=== PATIENT | female | born 1995 | race Caucasian/White ===

== ENCOUNTER 2017-04-21 21:38 | Emergency (ER) | payer BC ==
[~2017-04-21] VITALS: Ht 175.3 cm; Wt 62.0 kg
[2017-04-21 21:52] VITALS: TEMP 37.1; Ht 175.3 cm; Wt 62.0 kg
[2017-04-21] MEDS ORDERED: IBUPROFEN 600 MG TAB PO STA (22:09)
[2017-04-21] MEDS ORDERED: BCPILLS PO (22:18)
--- NOTE | 2017-04-21 22:31 | DIAGNOSTIC IMAGING REPORT ---
L KNEE 3 VIEWS CLINICAL HISTORY: Left knee pain status post trauma COMPARISON: None. DISCUSSION: No fractures or dislocations are visualized. There is no radiographic evidence of a significant joint effusion. IMPRESSION: No fractures or dislocations identified. Electronically signed by: Carlito Buck M.D. 04/21/2017 10:30 PM Dictated Date/Time: 04/21/2017 10:30 PM
[2017-04-21 23:04] VITALS: BP 108/61; PULSE 98; O2SAT 99
--- NOTE | 2017-04-22 05:37 | EMERGENCY ROOM VISIT NOTE ---
ED Visit Note First contact with patient: 22:08 CHIEF COMPLAINT: knee pain HISTORY OF PRESENT ILLNESS: This 22-year-old patient presents to the emergency department with friends after sustaining an injury to the left knee when she twisted it landing after a jump during volleyball on someone's foot. The patient denies any other injuries besides their knee. The patient denies swelling or bruising. There is pain medial aspect. They rate the pain as throbbing and 4/10. The patient states they are barely able to walk on it. No numbness or tingling. No previous injuries to this knee. No ankle, foot or hip pain. REVIEW OF SYSTEMS: A 6 system review of systems was completed with positives and pertinent negatives listed in the HPI. ALLERGIES: None MEDICATIONS: control PMH: None SOCIAL HISTORY: No drug use PHYSICAL EXAM: Vital Signs: Reviewed Nurse's notes, vital signs stable. GENERAL : Pleasant female, no acute distress, but appears in pain, well-developed, well- nourished. MENTAL STATUS: Alert, oriented to person place and time, and cooperative. MUSCULOSKELETAL: The left knee is not swollen. There is no ecchymosis. There is no joint effusion present. The patient is tender medial collateral ligament. There is no joint line tenderness. The patella not subluxate. Range of motion is intact but painful. Strength of the quads and hamstrings is 5/5. Ethan's is negative. Bruce's and Anterior Drawer tests are negative. There is no laxity with varus and valgus stressing. The foot and toes are warm and well-perfused. Dorsalis pedis pulse 2+. Sensation to pain and light touch is intact. Capillary refill less than 2 seconds. EMERGENCY DEPARTMENT COURSE: I examined the patient. X-rays of the left knee were reviewed by myself and read by radiology and reveal no fracture. The patient was placed in a knee Tony wrap under my direction and the position was satisfactory. The patient was instructed on the use of crutches. Patient was advised if symptoms persist to follow-up orthopedics or here in the ER sooner for severe pain, numbness, tingling, worsening signs or symptoms or as needed. The patient was discharged home in good condition. DIAGNOSIS: Left knee sprain DISCHARGE INSTRUCTIONS: As below Current/Historical Medications Scheduled Control Pills ( Control Pills), 1 TAB PO DAILY Allergies Coded Allergies: No Known Allergies (Unverified , 04/21/17) Vital Signs Date Time Temp Pulse Resp B/P (MAP) Pulse Ox O2 Delivery O2 Flow Rate FiO2 04/21/17 23:04 98 18 108/61 99 04/21/17 21:52 37.1 113 18 111/68 99 Room Air Medications Administered Medications (Trade) Dose Ordered Sig/Mary Jane Route Start Time Stop Time Status Last Admin Dose Admin Ibuprofen (Motrin Tab) 600 mg NOW STAT PO 04/21/17 22:09 04/21/17 22:10 DC 04/21/17 22:47 600 MG Departure Information Impression Primary Impression: Sprain of knee Dispostion Home / Self-Care Condition GOOD Referrals No Doctor, Assigned (PCP) Jamie Bustamante MD Forms HOME CARE DOCUMENTATION FORM, IMPORTANT VISIT INFORMATION Patient Instructions My [facility], ED Sprain Knee Additional Instructions Ibuprofen(Motrin, Advil) may be used for fever or pain. Use 600mg every six hours as needed. Take with food. Avoid using more than 2400mg in a 24 hour period. Do not use 2400mg per day for more than three consecutive days without physician direction. Prolonged inappropriate use can lead to stomach upset or ulcers. This medication can be taken if you need to drive, work, or perform activities which may be dangerous when taking narcotic pain medication. Acetaminophen(Tylenol) may be used for fever or pain. Use 1000mg every six hours as needed. Avoid using more than 3000mg in a 24 hour period. This medication can be taken if you need to drive, work, or perform activities which may be dangerous when taking narcotic pain medication. Ice compresses for 20 minutes at a time four times daily for 2-3 days. Use the crutches as instructed. Rest and elevate your injury. Wear tony wrap until pain subsides. Do not have it so tight that you cannot feel your foot. Continue current medications. Return to the ER immediately for any numbness, tingling, severe pain, extreme swelling in the extremity or as needed. Call Orthopedics in 3-5 days if symptoms persist to arrange follow up for your injury.
== END 2017-04-21 23:05 | disposition home or self-care (01) ==
LOC: C.EDB 21:42 → C.EDD 23:05
DX: S83.92XA Sprain of unspecified site of left knee, initial encounter (principal); X50.1XXA Overexertion from prolonged static or awkward postures, initial encounter; W51.XXXA Accidental striking against or bumped into by another person, initial encounter; Y93.68 Activity, volleyball (beach) (court); Y99.8 Other external cause status

== ENCOUNTER → 2017-05-04 | Outpatient (CLI) | payer BC ==
[~2017-05-04] MED LIST: BCPILLS PO
--- NOTE | 2017-05-04 15:59 | DIAGNOSTIC IMAGING REPORT ---
MRI OF THE LEFT KNEE CLINICAL HISTORY: Left knee pain. COMPARISON STUDY: Radiographs of the left knee dated 04/21/2017. TECHNIQUE: MRI of the left knee was performed utilizing proton density, T1, and T2-weighted sequences in the axial, sagittal, coronal planes. IV contrast was not administered for this examination. FINDINGS: Menisci: There is increased signal identified within the posterior horn of the medial meniscus. Tear is suspected although this does not clearly extend to the articular surface. This is best seen on sagittal image #6 the lateral meniscus is maintained. Ligaments: There is been rupture of the anterior cruciate and. The posterior cruciate ligament is intact. The medial and lateral collateral ligaments are within normal limits. Extensor mechanism: The extensor mechanism is intact. Hoffa's fat pad is normal in appearance. Articular cartilage and bone: The articular cartilage is intact and well maintained all 3 compartments. Large bony contusions are identified within the lateral femoral condyle and the lateral tibial plateau. Mild contusion is seen in the medial tibial plateau posteriorly. Joint effusion: There is a large joint effusion. Soft tissues: The musculature surrounding the knee joint is normal in bulk and signal intensity. IMPRESSION: 1. Ruptured anterior cruciate ligament. 2. Suspect an oblique tear involving the posterior horn of the medial meniscus. 3. Large joint effusion. 4. Bony contusions as above. Electronically signed by: Gurvinder Schafer M.D. 05/04/2017 3:58 PM Dictated Date/Time: 05/04/2017 3:55 PM
== END | disposition home or self-care (01) ==
LOC: C.MRIBC 14:41
PROVIDERS: ATTEND Orthopaedic Surgery
DX: M25.562 Pain in left knee (principal)